=== PATIENT | female | born 1955 | race Caucasian/White ===

== ENCOUNTER 2017-02-13 15:07 | Emergency (ER) | payer BC, OTHER ==
[2017-02-13 15:21] VITALS: BMI 25.7
--- NOTE | 2017-02-13 15:52 | PDOC ---
Attending Attestation - Resident Resident Name: Christoph Mohr - ED Attending Attestation I have performed the following: I have examined & evaluated the patient, The case was reviewed & discussed with the resident, I agree w/resident's findings & plan, Exceptions are as noted - HPI HPI: 02/13/17 16:27 61y F hx of HTN, DM, HL, s/p gastirc bypass presents with lightheadedness. Pt states that she was cleaning her bathroom, had used bleach and then put toilet bowl cleaners and felt a burning sensation in her eyes, nose, and burning in her throat with chest tightness. She took a shower and then went out to [facility] and felt dizzy/lightheaded so came to the ED. Pt denies any chest pain, headache , vision changes, palpitations, current sob, leg swelling hemoptysis. on exam Diabetes: Yes HTN: Yes Hypercholesterolemia: Yes - Surgical History Abdominal Surgery: Yes (HERNIA) GI Surgery: Yes (bypass) Heart Score/ECG Review - ECG Impressions Comment:: 02/13/17 16:50 Twelve-lead EKG was performed and reviewed by me. There is normal sinus rhythm with a normal rate. Rate of 82 The axis is normal. The intervals are normal. There is normal R wave progression There are no ST or T wave abnormalities. Impression: Normal twelve-lead EKG
[2017-02-13] MEDS ORDERED: SODIUM CHLORIDE 1,000 ML IV STA (15:54)
--- NOTE | 2017-02-13 15:54 | PDOC ---
History of Present Illness - General Chief Complaint: Lightheaded Stated Complaint: DIZZINESS Time Seen by Provider: 02/13/17 15:27 - History of Present Illness Initial Comments: 02/13/17 15:58 Ms. Cruz is a 61 yo female with a significant past medical history of HTN< HC, DM, Gastric sleeve who presents to the emergency department with a recent history of dizziness while cleaning the toilet today. She says that following this she had burning in her nostrils that was relieved with water running down her nose. She then went to the store and felt lightheaded and weak so decided to come get checked out. The patient denies chest pain, shortness of breath, and headache. Denies fever, chills, nausea, vomit, diarrhea and constipation. Denies dysuria, frequency, urgency and hematuria. Allergies: NKDA Past surgical history: knee repair, 2 c-sections, 2 hernias, parathyroid surgery , lap band and sleve. Social history: denies PMD - 02/13/17 16:00 Past History - Past Medical History Allergies/Adverse Reactions: Allergies Allergy/AdvReac Type Severity Reaction Status Date / Time No Known Allergies Allergy Verified 02/13/17 15:17 Home Medications: Ambulatory Orders Exenatide [Byetta] 10 mcg SQ ASDIR 01/31/13 Lisinopril [Prinivil] 50 mg PO DAILY 01/31/13 Omeprazole 40 mg PO ASDIR 01/31/13 Simvastatin [Zocor] 20 mg PO HS 01/31/13 Sitagliptin Phos/Metformin HCl [Janumet 50-1,000 mg Tablet] 1 each PO BID Cyclobenzaprine HCl [Flexeril -] 5 mg PO TID PRN #21 tablet 02/21/16 Naproxen [Naprosyn -] 500 mg PO BID PRN #14 tablet 02/21/16 Diabetes: Yes HTN: Yes Hypercholesterolemia: Yes - Surgical History Abdominal Surgery: Yes (HERNIA) GI Surgery: Yes (bypass) - Psycho/Social/Smoking Cessation Hx Anxiety: No Suicidal Ideation: No Smoking Status: No Smoking History: Never smoked Have you smoked in the past 12 months: No Number of Cigarettes Smoked Daily: 0 Hx Alcohol Use: No Drug/Substance Use Hx: No Substance Use Type: None Hx Substance Use Treatment: No Review of Systems - Review of Systems Comments:: 02/13/17 15:59 GENERAL/CONSTITUTIONAL: +General lightheadedness and weakness earlier today. No fever or chills. HEAD, EYES, EARS, NOSE AND THROAT: No change in vision. No ear pain or discharge. No sore throat. CARDIOVASCULAR: No chest pain or shortness of breath RESPIRATORY: No cough, wheezing, or hemoptysis. GASTROINTESTINAL: No nausea, vomiting, diarrhea or constipation. GENITOURINARY: No dysuria, frequency, or change in urination. MUSCULOSKELETAL: No joint or muscle swelling or pain. No neck or back pain. SKIN: No rash NEUROLOGIC: No headache, vertigo, loss of consciousness, or change in strength/ sensation. ENDOCRINE: No increased thirst. No abnormal weight change HEMATOLOGIC/LYMPHATIC: No anemia, easy bleeding, or history of blood clots. ALLERGIC/IMMUNOLOGIC: No hives or skin allergy. 02/13/17 16:11 *Physical Exam - Vital Signs Last Vital Signs Temp Pulse Resp BP Pulse Ox 97.9 F 76 19 98/43 100 02/13/17 15:18 02/13/17 15:18 02/13/17 15:18 02/13/17 15:18 02/13/17 15:18 - Physical Exam Comments: 02/13/17 15:59 GENERAL: Awake, alert, and fully oriented, in no acute distress HEAD: No signs of trauma, normocephalic, atraumatic EYES: PERRLA, EOMI, sclera anicteric, conjunctiva clear ENT: Auricles normal inspection, hearing grossly normal, nares patent, oropharynx clear without exudates. Moist mucosa NECK: Normal ROM, supple, no lymphadenopathy, JVD, or masses LUNGS: No distress, speaks full sentences, clear to auscultation bilaterally HEART: Regular rate and rhythm, normal S1 and S2, no murmurs, rubs or gallops, peripheral pulses normal and equal bilaterally. ABDOMEN: Soft, nontender, normoactive bowel sounds. No guarding, no rebound. No masses EXTREMITIES: Normal inspection, Normal range of motion, no edema. No clubbing or cyanosis. NEUROLOGICAL: Cranial nerves II through XII grossly intact. Normal speech, normal gait, no focal sensorimotor deficits SKIN: Warm, Dry, normal turgor, no rashes or lesions noted. ED Treatment Course - LABORATORY CBC & Chemistry Diagram: 02/13/17 16:11 02/13/17 16:11 Medical Decision Making - Medical Decision Making 02/13/17 18:48 Patient presents with history of lightheaded feeling while cleaning with toilet bowl cleaner assistant and bleach, then later weak/dizzy while shopping. Toilet bowl cleaner assistant + bleach releases chlorine gas. Patient's initial symptoms consistent with chlorine exposure. Blood pressure while presenting very low. On repeat after 1 L BP 122/76. D/C'ing to home with instructions to f/u with PCP. 02/13/17 18:51 *DC/Admit/Observation/Transfer Diagnosis at time of Disposition: HIGH BLOOD PRESSURE - Discharge Dispostion Disposition: HOME - Referrals Referrals: Aron Wren MD [Primary Care Provider] - - Patient Instructions Printed Discharge Instructions: DI for High Blood Pressure Additional Instructions: Please return if any further symptoms of lightheadedness or airway pain. Do not clean using bleach and toilet bowl cleaner assistant together anymore. F/U with PCP for blood pressure management. - Attestations Physician Attestion: 02/13/17 18:53 I, Dr. Christoph Mohr, attest that this document has been prepared under my direction and personally reviewed by me in its entirety. I further attest, that it accurately reflects all work, treatment, procedures and medical decision -making performed by me.
[2017-02-13 16:22] LABS: BASOPHIL 0.7 % (0-2.0); EOSINOPHIL 0.7 % (0-4.5); MCH 29.2 pg (25.7-33.7); MCHC 32.6 g/dl (32.0-36.0); MEAN CELL VOLUME 89.7 fl (80-96); MEAN PLT VOLUME 8.6 fl (7.5-11.1); NEUTROPHILS 72.5 % (42.8-82.8); PLATELET COUNT 287 K/MM3 (134-434); WHITE BLOOD COUNT 12.8 K/mm3 (4.0-10.0)
[2017-02-13 16:45] LABS: ALBUMIN 3.5 g/dl (3.4-5.0); ALK PHOS 49 U/L (45-117); ANION GAP 8 (8-16); BILIRUBIN,TOTAL 0.4 mg/dL (0.2-1.0); CALCIUM 9.8 mg/dL (8.5-10.1); CO2 27 mmol/L (21-32); CREATININE 1.9 mg/dL (0.55-1.02); GLUCOSE,RANDOM 97 mg/dL (74-106); SGOT/AST 21 U/L (15-37); SGPT/ALT 37 U/L (12-78); TOT PROT 6.5 g/dl (6.4-8.2)
[2017-02-13 18:47] VITALS: BP 122/76; PULSE 91; TEMP 98
--- NOTE | 2017-02-15 13:54 | EKG ---
Test Reason : Blood Pressure : / mmHG Vent. Rate : 082 BPM Atrial Rate : 082 BPM P-R Int : 146 ms QRS Dur : 080 ms QT Int : 390 ms P-R-T Axes : 033 -12 029 degrees QTc Int : 455 ms NORMAL SINUS RHYTHM NORMAL ECG WHEN COMPARED WITH ECG OF 05-FEB-2013 13:39, NO SIGNIFICANT CHANGE WAS FOUND Confirmed by ESTHER DURANT MD ([id number]) on 02/15/2017 1:54:22 PM Referred By: Confirmed By:ESTHER DURANT MD
== END 2017-02-13 19:01 | disposition home or self-care (01) ==
LOC: JER 15:07
PROC: 3E0337Z Introduction of Electrolytic and Water Balance Substance into Peripheral Vein, Percutaneous Approach (ICD-10-PCS; principal; 2017-02-13)
DX: I10 Essential (primary) hypertension (principal); E78.5 Hyperlipidemia, unspecified; E11.9 Type 2 diabetes mellitus without complications; Z98.84 Bariatric surgery status; Z79.84 Long term (current) use of oral hypoglycemic drugs
CPT/HCPCS: 36415; 80053; 83735; 85025; 93005; 93010; 99284-25

== ENCOUNTER 2019-05-03 17:32 | Emergency (ER) | payer BC, OTHER ==
[2019-05-03] MEDS ORDERED: DIPHTH,PERTUSS(ACELL),TET 0.5 ML DISP.SYRIN IM ONE ×2 (17:36→18:11)
--- NOTE | 2019-05-03 17:36 | PDOC ---
Rapid Medical Evaluation Chief Complaint: Injury Time Seen by Provider: 05/03/19 17:34 Medical Evaluation: Allergies Allergy/AdvReac Type Severity Reaction Status Date / Time No Known Allergies Allergy Verified 02/13/17 15:17 05/03/19 17:35 Pt c/o: lac to left 1 st digit, unknown last tdap Pt on brief exam: noted superficial linear lac to base of left thumb Pt ordered for: tdap Pt to proceed to the ED Discharge Disposition - Diagnosis Laceration - Referrals - Patient Instructions - Post Discharge Activity
[2019-05-03 17:38] VITALS: BP 155/76; PULSE 78; TEMP 98; BMI 28.3
--- NOTE | 2019-05-03 18:42 | PDOC ---
History of Present Illness - General Chief Complaint: Injury Stated Complaint: LEFT HAND/INJURY Time Seen by Provider: 05/03/19 17:34 History Source: Patient Exam Limitations: No Limitations Past History - Past Medical History Allergies/Adverse Reactions: Allergies Allergy/AdvReac Type Severity Reaction Status Date / Time No Known Allergies Allergy Verified 05/03/19 17:38 Home Medications: Ambulatory Orders Exenatide [Byetta] 10 mcg SQ ASDIR 01/31/13 Lisinopril [Prinivil] 50 mg PO DAILY 01/31/13 Omeprazole 40 mg PO ASDIR 01/31/13 Simvastatin [Zocor] 20 mg PO HS 01/31/13 Sitagliptin Phos/Metformin HCl [Janumet 50-1,000 mg Tablet] 1 each PO BID Cyclobenzaprine HCl [Flexeril -] 5 mg PO TID PRN #21 tablet 02/21/16 Naproxen [Naprosyn -] 500 mg PO BID PRN #14 tablet 02/21/16 COPD: No Diabetes: Yes HTN: Yes Hypercholesterolemia: Yes - Surgical History Abdominal Surgery: Yes (HERNIA) GI Surgery: Yes (bypass) - Psycho Social/Smoking Cessation Hx Smoking Status: No Smoking History: Never smoked Have you smoked in the past 12 months: No Number of Cigarettes Smoked Daily: 0 Information on smoking cessation initiated: No Hx Alcohol Use: No Drug/Substance Use Hx: No Substance Use Type: None Hx Substance Use Treatment: No *Physical Exam - Vital Signs Last Vital Signs Temp Pulse Resp BP Pulse Ox 98 F 78 18 155/76 98 05/03/19 17:34 05/03/19 17:34 05/03/19 17:34 05/03/19 17:34 05/03/19 17:34 - Physical Exam General Appearance: No: Apparent Distress Extremity: positive: Normal Range of Motion Integumentary: positive: Other (<2 cm superficial laceration along proximal end of L thumb, no erythema, no swelling, FROM of L thumb, LUE neurovascularly intact). negative: Swelling, Ecchymosis, Bruising Neurologic: positive: Alert, Normal Mood/Affect Procedures - Laceration/Wound Repair Left Hand 1st digit Wound Length: to 2.5 cm Wound Explored: clean Wound's Depth, Shape: superficial Irrigated w/ Saline: Yes Betadine Prep: Yes Anesthesia: 1% Lidocaine Wound Debrided: moderate Wound Repaired With: Sutures Suture Size/Type: 5:0, nylon Number of Sutures: 3 Layer Closure: No Sterile Dressing Applied: Yes Splint Applied: No ED Treatment Course - Medications Given in the ED: ED Medications Discontinued Medications Generic Name Dose Route Start Last Admin Trade Name Michelle PRN Reason Stop Dose Admin Diphtheria/Tetanus/Acell Pertussis 0.5 ml 05/03/19 17:36 05/03/19 18:11 Boostrix - IM 05/03/19 17:37 0.5 ml .ONCE ONE Administration Medical Decision Making - Medical Decision Making 63 y/o F with hx of HTN, HLD, DM, s/p gastric bypass presents with cut to L thumb from today. States she accidentally cut thumb while cutting food using a new knife. Is R handed. Unsure of last tetanus. Denies fever, numbness, other complaints L thumb lac repaired (see procedure note) Given tetanus No suspicion for fracture based on exam 05/03/19 18:41 Discharge - Discharge Information Problems reviewed: Yes Clinical Impression/Diagnosis: Laceration Condition: Stable Disposition: HOME - Admission No - Additional Discharge Information Prescription Drug Monitoring Program (I-STOP) results: I-STOP not reviewed - Follow up/Referral Referrals: Aron Wren MD [Primary Care Provider] - - Patient Discharge Instructions Patient Printed Discharge Instructions: DI for Laceration Repair -- Finger Additional Instructions: Thank you for choosing [facility]. It was a pleasure taking care of you. Please keep site clean and dry for the next 24 hours You may then gently clean around site with soap and water Return in 7-10 days for suture removal Return to the Emergency Department if your symptoms worsen or persist, you have fever, redness, streaking, pustular drainage or other concerning symptoms. - Post Discharge Activity
== END 2019-05-03 19:11 | disposition home or self-care (01) ==
LOC: JERFT 17:32
PROC: 3E0234Z Introduction of Serum, Toxoid and Vaccine into Muscle, Percutaneous Approach (ICD-10-PCS; principal; 2019-05-03)
PROC: 0HQGXZZ Repair Left Hand Skin, External Approach (ICD-10-PCS; 2019-05-03)
DX: S61.012A Laceration without foreign body of left thumb without damage to nail, initial encounter (principal); W26.0XXA Contact with knife, initial encounter; Y93.G1 Activity, food preparation and clean up; Y92.010 Kitchen of single-family (private) house as the place of occurrence of the external cause; Y99.8 Other external cause status; I10 Essential (primary) hypertension; E78.00 Pure hypercholesterolemia, unspecified; E11.9 Type 2 diabetes mellitus without complications; Z79.84 Long term (current) use of oral hypoglycemic drugs
CPT/HCPCS: 90715; 99281-25

== ENCOUNTER 2019-05-11 11:07 | Emergency (ER) | payer BC, OTHER ==
[2019-05-11 11:16] VITALS: BP 118/59; PULSE 68; TEMP 98.3; BMI 28.3
--- NOTE | 2019-05-11 11:32 | PDOC ---
History of Present Illness - General Chief Complaint: Suture/Staple Removal(Here) Stated Complaint: SUTURE/STAPLE REMOVAL Time Seen by Provider: 05/11/19 11:21 History Source: Patient Exam Limitations: No Limitations - History of Present Illness Initial Comments: 05/11/19 12:27 Chief complaint:'s suture removal Patient 63-year-old female who had 3 sutures placed to her left hand after cutting her hand with a knife. She has no complaints. GENERAL/CONSTITUTIONAL: No fever, weakness. dizziness HEAD, EYES, EARS, NOSE AND THROAT: No change in vision. No ear pain or discharge. No sore throat. CARDIOVASCULAR: No chest pain RESPIRATORY: No shortness of breath or cough GASTROINTESTINAL: No pain, nausea, vomiting, diarrhea or constipation GENITOURINARY: No dysuria MUSCULOSKELETAL: No neck or back pain SKIN: No rash NEUROLOGIC: No headache, vertigo, loss of consciousness, or loss of sensation. GENERAL: The patient is awake, alert, and fully oriented, in no acute distress. HEAD: Normal with no signs of trauma. EYES: Pupils equal, round and reactive to light, sclera anicteric, conjunctiva clear. ENT: pharynx: no erythema, no exudate, uvula midline NECK: supple EXTREMITIES: [address] to the left hand, no signs of infection, full range of motion, no swelling or tenderness or discharge. Rest of extremities, normal range of motion, no edema. NEUROLOGICAL: Normal speech, normal gait. SKIN: Warm, Dry Is this a multiple visit Asthma Patient?: No Past History - Past Medical History Allergies/Adverse Reactions: Allergies Allergy/AdvReac Type Severity Reaction Status Date / Time No Known Allergies Allergy Verified 05/03/19 17:38 Home Medications: Ambulatory Orders Exenatide [Byetta] 10 mcg SQ ASDIR 01/31/13 Lisinopril [Prinivil] 50 mg PO DAILY 01/31/13 Omeprazole 40 mg PO ASDIR 01/31/13 Simvastatin [Zocor] 20 mg PO HS 01/31/13 Sitagliptin Phos/Metformin HCl [Janumet 50-1,000 mg Tablet] 1 each PO BID Cyclobenzaprine HCl [Flexeril -] 5 mg PO TID PRN #21 tablet 02/21/16 Naproxen [Naprosyn -] 500 mg PO BID PRN #14 tablet 02/21/16 COPD: No Diabetes: Yes HTN: Yes Hypercholesterolemia: Yes - Surgical History Abdominal Surgery: Yes (HERNIA) GI Surgery: Yes (bypass) - Immunization History Immunization Up to Date: No - Psycho Social/Smoking Cessation Hx Smoking Status: No Smoking History: Never smoked Have you smoked in the past 12 months: No Number of Cigarettes Smoked Daily: 0 Information on smoking cessation initiated: No Hx Alcohol Use: No Drug/Substance Use Hx: No Substance Use Type: None Hx Substance Use Treatment: No *Physical Exam - Vital Signs Last Vital Signs Temp Pulse Resp BP Pulse Ox 98.3 F 68 16 118/59 L 98 05/11/19 11:15 05/11/19 11:15 05/11/19 11:15 05/11/19 11:15 05/11/19 11:15 Medical Decision Making - Medical Decision Making 05/11/19 12:28 63-year-old female who returns to have sutures removed, patient has no other complaints, wound is healed well sutures removed without difficulty Discharge - Discharge Information Problems reviewed: Yes Clinical Impression/Diagnosis: Visit for suture removal Condition: Stable Disposition: HOME - Admission No - Additional Discharge Information Prescription Drug Monitoring Program (I-STOP) results: I-STOP not reviewed - Follow up/Referral Referrals: Aron Wren MD [Primary Care Provider] - - Patient Discharge Instructions Patient Printed Discharge Instructions: DI for Suture Removal Additional Instructions: enjoy your day. return if redness, pus or signs of infection - Post Discharge Activity
== END 2019-05-11 11:54 | disposition home or self-care (01) ==
LOC: JERFT 11:07
DX: Z48.817 Encounter for surgical aftercare following surgery on the skin and subcutaneous tissue (principal); Z48.02 Encounter for removal of sutures; T14.8XXD Other injury of unspecified body region, subsequent encounter; W26.0XXD Contact with knife, subsequent encounter; I10 Essential (primary) hypertension; E11.9 Type 2 diabetes mellitus without complications; Z79.84 Long term (current) use of oral hypoglycemic drugs; E78.00 Pure hypercholesterolemia, unspecified; Z98.84 Bariatric surgery status
CPT/HCPCS: 99281-25

== ENCOUNTER 2020-11-02 11:59 | Inpatient (IN) | payer OTHER, BC ==
[2020-11-02 13:24] LABS: BASO % 0.8 % (0-2.0); EOS % 1.4 % (0-4.5); HEMATOCRIT 39.4 % (32.4-45.2); HEMOGLOBIN 13.1 GM/dL (10.7-15.3); MCH 29.7 pg (25.7-33.7); MCHC 33.2 g/dl (32.0-36.0); MEAN CELL VOLUME 89.3 fl (80-96); MONO % 6.6 % (3.8-10.2); NEUT % 55.2 % (42.8-82.8); PLATELET COUNT 302 K/MM3 (134-434); RBC 4.41 M/mm3 (3.60-5.2); RDW 14.1 % (11.6-15.6); WHITE BLOOD COUNT 7.4 K/mm3 (4.0-10.0)
[2020-11-02 13:38] LABS: INR 0.93 (0.83-1.09); PROTHROMBIN TIME (PATIENT) 11.5 SEC (9.7-13.0)
[2020-11-02 14:03] LABS: CALCIUM 10.1 mg/dL (8.5-10.1)
[2020-11-02 14:04] LABS: ALBUMIN 3.8 g/dl (3.4-5.0); BLOOD UREA NITROGEN 38.9 mg/dL (7-18)
[2020-11-02 14:07] LABS: CREATININE 1.9 mg/dL (0.55-1.3)
[2020-11-02 14:09] LABS: BILIRUBIN,TOTAL 0.8 mg/dL (0.2-1); TOT PROT 7.1 g/dl (6.4-8.2)
[2020-11-02] MEDS ORDERED: HEPARIN NA (PORCINE) 5,000 UNITS/ML 1ML VIAL IVPUSH PRN ×4 (14:40→15:34)
[2020-11-02] MEDS ORDERED: HEPARIN - 25,000 UNIT in SODIUM CHLORIDE 495 ML IV SCH ×2 (14:45→15:30)
[2020-11-02] MEDS ORDERED: HEPARIN NA (PORCINE) 5,000 UNITS/ML 1ML VIAL ONE ×2 (14:53→16:20)
[2020-11-02] MEDS ORDERED: HEPARIN INFUSION - 25,000 UNITS/500 ML INFUS.BAG IVPB ONE (14:53)
[2020-11-02] MEDS ORDERED: HEPARIN NA (PORCINE) 5,000 UNITS/ML 1ML VIAL IVPUSH ONE (15:22)
[2020-11-02] MEDS: INSULIN SLIDING SCALE (NOVOLOG) 1 VIAL SQ SCH ×2 (17:53→21:33)
[2020-11-02 22:47] VITALS: BMI 28.5
[2020-11-03] MEDS: LEVOTHYROXINE NA 25 MCG TABLET (FP) PO SCH (06:27)
[2020-11-03] MEDS: INSULIN SLIDING SCALE (NOVOLOG) 1 VIAL SQ SCH ×4 (06:27→21:36)
[2020-11-03 07:57] LABS: CHLORIDE 111 mmol/L (98-107); SODIUM 144 mmol/L (136-145)
[2020-11-03 07:59] LABS: CALCIUM 9.4 mg/dL (8.5-10.1)
[2020-11-03 08:00] LABS: ALBUMIN 3.3 g/dl (3.4-5.0); GLUCOSE,RANDOM 161 mg/dL (74-106)
[2020-11-03 08:02] LABS: ANION GAP 6 MMOL/L (8-16); BLOOD UREA NITROGEN 41.6 mg/dL (7-18); CO2 27 mmol/L (21-32)
[2020-11-03 08:03] LABS: SGOT/AST 18 U/L (15-37); SGPT/ALT 29 U/L (13-61); TRIGLYCERIDES 190 mg/dL (0-150)
[2020-11-03 08:04] LABS: BILIRUBIN,TOTAL 0.8 mg/dL (0.2-1)
[2020-11-03 08:05] LABS: CHOLESTEROL 231 mg/dL (50-200); CREATININE 1.9 mg/dL (0.55-1.3); LDL CHOLESTEROL (ONLY SJRH) 129 mg/dL (5-100); TOT PROT 5.9 g/dl (6.4-8.2)
[2020-11-03 08:06] LABS: ALK PHOS 52 U/L (45-117); HDL CHOLESTEROL 68 mg/dL (40-60)
[2020-11-03] MEDS: VALSARTAN 160 MG TABLET PO SCH (09:24)
[2020-11-03] MEDS: SPIRONOLACTONE 25 MG TABLET PO SCH (09:24)
[2020-11-03] MEDS: PANTOPRAZOLE 40 MG TABLET PO SCH (09:24)
[2020-11-03] MEDS ORDERED: HEPARIN NA (PORCINE) 5,000 UNITS/ML 1ML VIAL IVPUSH PRN ×4 (11:53→12:18)
[2020-11-03] MEDS ORDERED: HEPARIN - 25,000 UNIT in SODIUM CHLORIDE 495 ML IV SCH (12:00)
[2020-11-03] MEDS: HEPARIN - 25,000 UNIT in SODIUM CHLORIDE 495 ML IV SCH (14:22)
[2020-11-03] MEDS: ACETAMINOPHEN 325 MG TABLET (FP) PO PRN ×2 (16:54→23:18)
[2020-11-03] MEDS ORDERED: PT OWN MED DRAWER 7, Y5N ONE (18:21)
[2020-11-04] MEDS: INSULIN SLIDING SCALE (NOVOLOG) 1 VIAL SQ SCH ×3 (06:09→17:33)
[2020-11-04] MEDS: LEVOTHYROXINE NA 25 MCG TABLET (FP) PO SCH (06:10)
[2020-11-04 07:19] LABS: HEMATOCRIT 36.1 % (32.4-45.2); HEMOGLOBIN 11.8 GM/dL (10.7-15.3); MCH 29.5 pg (25.7-33.7); MCHC 32.7 g/dl (32.0-36.0); MEAN CELL VOLUME 90.1 fl (80-96); MEAN PLT VOLUME 9.6 fl (7.5-11.1); PLATELET COUNT 244 K/MM3 (134-434); RBC 4.01 M/mm3 (3.60-5.2); WHITE BLOOD COUNT 5.5 K/mm3 (4.0-10.0)
[2020-11-04 08:27] LABS: ALBUMIN 3.1 g/dl (3.4-5.0); BILIRUBIN,TOTAL 0.7 mg/dL (0.2-1); BLOOD UREA NITROGEN 38.2 mg/dL (7-18); CREATININE 1.8 mg/dL (0.55-1.3)
[2020-11-04] MEDS: VALSARTAN 160 MG TABLET PO SCH (09:02)
[2020-11-04] MEDS: SPIRONOLACTONE 25 MG TABLET PO SCH (09:02)
[2020-11-04] MEDS: PANTOPRAZOLE 40 MG TABLET PO SCH (09:02)
[2020-11-04] MEDS: HEPARIN - 25,000 UNIT in SODIUM CHLORIDE 495 ML IV SCH (12:50)
[2020-11-04 13:41] VITALS: BP 115/63; PULSE 68; TEMP 98.4
[2020-11-04] MEDS ORDERED: APIXABAN 5 MG TABLET PO SCH (14:23)
[2020-11-04] MEDS ORDERED: ATORVASTATIN CA 20 MG TABLET (FP) PO SCH (22:00)
[2020-11-06] MEDS ORDERED: ERGOCALCIFEROL (VIT D2) 50,000 UNIT (1.25 MG) CAPSULE PO SCH (10:00)
== END 2020-11-04 18:37 | disposition home or self-care (01) | DRG 301 ==
LOC: JER 11:59 → JERBED 14:46 → J4S 22:36
PROVIDERS: ADMIT Family Medicine; ATTEND Family Medicine
DX: I82.412 Acute embolism and thrombosis of left femoral vein (principal); E78.5 Hyperlipidemia, unspecified; I12.9 Hypertensive chronic kidney disease with stage 1 through stage 4 chronic kidney disease, or unspecified chronic kidney disease; E11.22 Type 2 diabetes mellitus with diabetic chronic kidney disease; N18.9 Chronic kidney disease, unspecified; E03.9 Hypothyroidism, unspecified; Z98.84 Bariatric surgery status; R00.2 Palpitations
CPT/HCPCS: 36415; 76775-TC; 76856-TC; 80053; 80061; 82550; 82553; 82962; 83036; 83721; 84443; 84484; 85025; 85027; 85610; 85730; 93005; 93010; 93971-TC; 99285-25; C9803; J1644; U0003; U0005